=== PATIENT | male | born 1950 | race Caucasian/White ===

== ENCOUNTER 2016-09-29 17:40 | Emergency (ER) | payer BC, MEDICARE ==
[2016-09-29] MEDS ORDERED: CRESTOR5 MG PO (18:36)
[2016-09-29] MEDS ORDERED: TRAN200 PO (18:37)
[2016-09-29] MEDS ORDERED: ASAB PO (18:37)
[2016-09-29] MEDS ORDERED: COMBIVENT RESPIM4 GM INH (18:37)
[2016-09-29] MEDS ORDERED: SPIRIVA INH (18:37)
[2016-09-29] MEDS ORDERED: ADVAIR250 INH (18:38)
[2016-09-29] MEDS ORDERED: [UNRECOGNIZED DRUG - OTHER] TOP (18:39)
[2016-09-29] MEDS ORDERED: FLONASE NAS (18:42)
[2016-09-29] MEDS ORDERED: ATV.5 PO (18:42)
[2016-09-29] MEDS ORDERED: LISINOPRIL PO (18:43)
[2016-09-29 18:54] LABS: BASOPHILS 0.5 %; BASOPHILS ABSOLUTE 0.04 10/3/uL (0.0-0.16); EOSINOPHILS 2.4 %; EOSINOPHILS ABSOLUTE 0.19 10/3/uL (0.0-0.53); HEMOGLOBIN 14.5 g/dL (13.6-17.8); IMMATURE GRANULOCYTES 0.3 %; IMMATURE GRANULOCYTES ABSOLUTE 0.02 10/3/uL (0.0-0.11); LYMPHOCYTES 26.1 %; LYMPHOCYTES ABSOLUTE 2.05 10/3/uL (0.67-4.30); MEAN CORPUS HGB CONC 34.5 g/dL (32.0-36.0); MEAN CORPUSCULAR VOLUME 95.5 fL (80-100); MEAN PLATELET VOLUME 9.9 fL (9.2-13.0); MONOCYTES 11.5 %; NEUTROPHILS 59.2 %; NEUTROPHILS ABSOLUTE 4.64 10/3/uL (2.02-8.40); PLATELET COUNT 267 10/3/uL (150-400); RBC DISTRIBUTION WIDTH 13.2 % (12.0-16.0); WHITE BLOOD CELLS 7.8 10/3/uL (4.5-10.5)
[2016-09-29 18:58] LABS: MANUAL DIFF NO %
[2016-09-29 19:05] LABS: INTERNATIONAL NORMAL RATI 1.1 UNITS (-); PARTIAL THROMBO TIME 33.2 SEC (22.5-37.2); PROTIME (NOT ORD) 13.8 SEC (12.0-14.5)
[2016-09-29 19:11] LABS: CHEST PAIN PROFILE TAT 0 Hrs 23 Mins; CHLORIDE, SERUM 108 MMOL/L (96-112); CO2 (CARBON DIOXIDE) 26 MMOL/L (24-34); CREATININE 1.09 MG/DL (0.70-1.30); GFR AFRICAN AMERICAN 82 ML/MIN (>=60); GFR NON AFRICAN AMERICAN 70 ML/MIN (>=60); SODIUM, SERUM 138 MMOL/L (135-148); TROPONIN I 0.02 NG/ML (<0.05)
[2016-09-29 19:16] LABS: BUN (BLOOD UREA NITROGEN) 16 MG/DL (6-23); CALCIUM, SERUM 8.7 MG/DL (8.5-10.4); GLUCOSE, SERUM 87 MG/DL (60-99); POTASSIUM, SERUM 4.4 MMOL/L (3.5-5.3)
== END 2016-09-29 21:36 | disposition home or self-care (01) ==
LOC: ER 17:40
PROVIDERS: Emergency Medicine
DX: R53.83 Other fatigue (principal); I10 Essential (primary) hypertension; F17.200 Nicotine dependence, unspecified, uncomplicated; Z79.82 Long term (current) use of aspirin; Z79.899 Other long term (current) drug therapy
CPT/HCPCS: 70450; 71010; 80048; 83735; 83880; 84484; 85025; 85610; 85730; 93005; 99291